=== PATIENT | female | born 1995 | race Caucasian/White ===

== ENCOUNTER 2016-08-31 03:32 | Emergency (ER) | payer MEDICAID ==
[~2016-08-31] VITALS: Ht 149.9 cm; Wt 46.3 kg
[2016-08-31 03:32] VITALS: BP_SYST 130
[2016-08-31 03:40] VITALS: BP_SYST 125
== END 2016-08-31 03:40 ==
LOC: SED 03:32
DX: Z02.89 Encounter for other administrative examinations (principal); F32.9 Major depressive disorder, single episode, unspecified
CPT/HCPCS: 99283

== ENCOUNTER 2016-09-20 22:30 | Emergency (ER) | payer MEDICAID ==
[~2016-09-20] VITALS: Ht 149.9 cm; Wt 49.9 kg
[2016-09-20 22:43] VITALS: BP 144/95; PULSE 100; RESP 16; TEMP 98.5; O2SAT 98
[2016-09-20 23:57] VITALS: BP 144/95; PULSE 100; RESP 16; TEMP 98.5; O2SAT 98
== END 2016-09-20 23:57 | disposition home or self-care (01) ==
LOC: SED 22:30
DX: T19.2XXA Foreign body in vulva and vagina, initial encounter (principal); N76.0 Acute vaginitis; B96.89 Other specified bacterial agents as the cause of diseases classified elsewhere; F32.9 Major depressive disorder, single episode, unspecified; W22.8XXA Striking against or struck by other objects, initial encounter; Y93.89 Activity, other specified; Y92.89 Other specified places as the place of occurrence of the external cause; Y99.8 Other external cause status
CPT/HCPCS: 99284

== ENCOUNTER 2017-02-18 09:29 | Emergency (ER) | payer SELFPAY ==
[~2017-02-18] VITALS: Ht 162.6 cm; Wt 49.0 kg
[2017-02-18 09:30] VITALS: BP_SYST 125
--- NOTE | 2017-02-18 09:30 | NUR ---
Pt to bed 3 accompanied by DEDRICKO
--- NOTE | 2017-02-18 09:35 | NUR ---
Dr. Mc at bedside for evaluation
[2017-02-18 09:48] VITALS: BP_SYST 125
--- NOTE | 2017-02-18 09:48 | NUR ---
Patient given written and verbal discharge instructions and verbalizes understanding. Patient in stable condition. ID arm band removed. No Rx given. Patient educated on pain management and to follow up with PMD. Pain Scale 0/10. Opportunity for questions provided and answered.
== END 2017-02-18 09:48 ==
LOC: SED 09:29
DX: Z02.89 Encounter for other administrative examinations (principal); F32.9 Major depressive disorder, single episode, unspecified
CPT/HCPCS: 99283